=== PATIENT | female | born 1970 | race Caucasian/White ===

== ENCOUNTER 2018-10-04 11:12 | Emergency (ER) | payer OTHER ==
[2018-10-04] MEDS: LORAZEPAM 1 MG TAB PO (11:33)
[2018-10-04] MEDS: ACETAMINOPHEN 325 MG TAB PO (11:33)
== END 2018-10-04 11:48 ==
LOC: E/R 11:12
DX: G40.909 Epilepsy, unspecified, not intractable, without status epilepticus (principal); Z76.5 Malingerer [conscious simulation]
CPT/HCPCS: 82962; 99283